=== PATIENT | female | born 1985 | race African-American/Black ===

== ENCOUNTER 2016-07-14 17:05 | Emergency (ER) | payer MEDICAID ==
[~2016-07-14] VITALS: Ht 160 cm; Wt 68.9 kg
[2016-07-14] MEDS ORDERED: NKM (17:19)
[2016-07-14] MEDS ORDERED: TESSALON PERLE100 MG ORAL (17:37)
[2016-07-14] MEDS ORDERED: IBUPROFEN600 MG ORAL (17:37)
[2016-07-14] MEDS ORDERED: AMOXICILLIN500 MG ORAL (17:37)
[2016-07-14 17:47] VITALS: BP 106/75
--- NOTE | 2016-07-16 22:08 | Emergency Room Report ---
History of Present Illness General Chief Complaint: Flu Like Symptoms Source: Patient Present Illness [facility] The patient is a 30-year-old female presenting for productive cough and sore throat which began one week prior. Pain is described as a 7/10 dull ache to the back of the throat and is worse with swallowing. Pain does not radiate. She denies any sick contacts or recent travel. She also admits to fatigue and subjective fevers. She denies any other symptoms including nausea, vomiting, shortness of breath, rash, neck pain or stiffness, abdominal pain Allergies: Coded Allergies: No Known Allergies (Unverified , 07/14/16) Patient History Past Medical History: see triage record Pertinent Family History: none Last Menstrual Period: 06/25/2016 Now: No Nursing Documentation-[facility] Past Medical History: No History, Except For Hx Hypertension: Yes Review of Systems All Other Systems: negative except mentioned in HPI Physical Exam Vital Signs Date Time Temp Pulse Resp B/P Pulse Ox O2 Delivery O2 Flow Rate FiO2 07/14/16 17:13 99.1 91 16 133/92 96 Room Air Sp02 EP Interpretation: reviewed, normal General Appearance: no apparent distress, alert, GCS 15, non-toxic Head: normocephalic, atraumatic Eyes: bilateral eye PERRL, bilateral eye normal inspection ENT: hearing grossly normal, normal voice, TMs + canals normal, uvula midline, tonsillar swelling, pharyngeal erythema Neck: full range of motion, supple/symm/no masses Respiratory: chest non-tender, lungs clear, normal breath sounds, speaking full sentences Cardiovascular #1: regular rate, rhythm, no edema Musculoskeletal: back normal, gait/station normal, normal range of motion, non- tender Neurologic: alert, oriented x3, responsive, motor strength/tone normal, sensory intact, speech normal Psychiatric: judgement/insight normal, memory normal, mood/affect normal, no suicidal/homicidal ideation Skin: normal color, no rash, warm/dry, well hydrated Lymphatic: adenopathy Medical Decision Making PA Attestation Dr. Ye is my supervising physician. Patient management was discussed with my supervising physician Diagnostic Impression: Primary Impression: Pharyngitis, acute Qualified Codes: J02.9 - Acute pharyngitis, unspecified ER Course The patient is a 30-year-old female presenting for productive cough and sore throat Differential diagnosis include but not limited to pharyngitis, sinusitis, AOM, bronchitis, PNA Physical exam: Vitals within normal limits. Afebrile. No apparent distress HEENT exam: There is bilateral tonsillar edema, erythema. Uvula midline. Moist mucous membranes. There is bilateral cervical lymphadenopathy. Lungs are clear to auscultation bilaterally Skin is warm and dry. No rash The patient will be discharged home with a prescription for amoxicillin and is given ER precautions. Patient will followup with primary care Last Vital Signs Date Time Temp Pulse Resp B/P Pulse Ox O2 Delivery O2 Flow Rate FiO2 07/14/16 17:47 70 16 106/75 100 Room Air 07/14/16 17:47 98.2 Status: improved Disposition: HOME, SELF-CARE Condition: Improved Scripts Amoxicillin* (AMOXIL*) 500 Mg Capsule 500 MG ORAL Q12HR, #20 CAP Prov: CESAR HENAO P.A. 07/14/16 Benzonatate* (TESSALON PERLE*) 100 Mg Capsule 100 MG ORAL THREE TIMES A DAY, #20 PERLE Prov: CESAR HENAO P.A. 07/14/16 Ibuprofen* (MOTRIN*) 600 Mg Tablet 600 MG ORAL Q8H Y for For Pain, #30 TAB 0 Refills Prov: CESAR HENAO P.A. 07/14/16 Patient Instructions: Sore Throat Additional Instructions: I discussed my findings with the patient. All questions and concerns have been answered. Treatment and medication compliance have been addressed. I advised the patient that they need to follow up with PMD in 3-5 days. Return to ED if pain remains or worsens, cough worsens or remains, you notice blood in your sputum, you notice wheezing, you experience a fever, or if needed for any reason. Patient verbalized understanding of discharge instructions. CESAR HENAO Jul 16, 2016 22:08
== END 2016-07-14 17:47 | disposition home or self-care (01) ==
LOC: EMR 17:25
DX: J02.9 Acute pharyngitis, unspecified (principal); I10 Essential (primary) hypertension
CPT/HCPCS: 99284

== ENCOUNTER 2016-09-24 10:31 | Emergency (ER) | payer MEDICAID ==
[~2016-09-24] VITALS: Ht 162.6 cm; Wt 68.0 kg
[~2016-09-24 10:31] MED LIST: AMOXICILLIN500 MG ORAL; IBUPROFEN600 MG ORAL; NKM; TESSALON PERLE100 MG ORAL
[2016-09-24 11:01] VITALS: BP 125/78
--- NOTE | 2016-09-24 11:11 | Emergency Room Report ---
History of Present Illness General Chief Complaint: Skin Rash/Abscess Source: Patient Present Illness HPI Patient with rash L side of chest posterior and anterior for 2 days. Severely painful. - rated 6/10. Bumpy rash began. Feverish but not documented. No numbness. No NVD, dysuria. No known exposure. Allergies: Coded Allergies: No Known Allergies (Unverified , 07/14/16) Patient History Past Medical History: see triage record Social History: Reports: smoking Social History Narrative has 2 yo at home Now: No Reviewed Nursing Documentation: PMH: Agreed, PSxH: Agreed Nursing Documentation-PMH Hx Hypertension: Yes Review of Systems Constitutional: Reports: chills, fever, malaise, no symptoms, other, see HPI, sweats, weakness All Other Systems: negative except mentioned in HPI Physical Exam Vital Signs Date Time Temp Pulse Resp B/P Pulse Ox O2 Delivery O2 Flow Rate FiO2 09/24/16 10:39 98.4 75 15 123/80 97 Room Air Sp02 EP Interpretation: reviewed, normal General Appearance: well appearing, no apparent distress Head: normocephalic, atraumatic Eyes: bilateral eye PERRL, bilateral eye normal inspection ENT: hearing grossly normal, normal voice, moist mucus membranes Neck: full range of motion, supple Respiratory: no respiratory distress, speaking full sentences Gastrointestinal: normal inspection Musculoskeletal: digits/nails normal, gait/station normal, normal range of motion Neurologic: normal inspection, alert, normal gait, grossly normal Psychiatric: mood/affect normal Skin: warm/dry, rash - vesicular T 3 L. Medical Decision Making Diagnostic Impression: Primary Impression: Shingles Qualified Codes: B02.9 - Zoster without complications ER Course Patient presents with unilateral vesicular rash. Dx = shingles. Need to see if preg. Clinical diagnosis. Needs valacylovir and focus on treatment of pain. Pt developed bronchospasm. Albuterol ordered. Cough. Improved after breathing treatment. NAD Patient improved. Patient stable for outpatient observation and treatment. Labs Test 09/24/16 13:26 Urine Color Pale yellow Urine Appearance Clear Urine pH 6 (4.5-8.0) Urine Specific [place] 1.010 (1.005-1.035) Urine Protein Negative (NEGATIVE) Urine Glucose (UA) Negative (NEGATIVE) Urine Ketones Negative (NEGATIVE) Urine Occult Blood 4+ (NEGATIVE) Urine Nitrite Negative (NEGATIVE) Urine Bilirubin Negative (NEGATIVE) Urine Urobilinogen Normal MG/DL (0.0-1.0) Urine Leukocyte Esterase 1+ (NEGATIVE) Urine RBC 2-4 /HPF (0 - 2) Urine WBC 2-4 /HPF (0 - 2) Urine Squamous Epithelial Cells Few /LPF (NONE/OCC) Urine Bacteria Few /HPF (NONE) Urine HCG, Qualitative Negative Last Vital Signs Date Time Temp Pulse Resp B/P Pulse Ox O2 Delivery O2 Flow Rate FiO2 09/24/16 14:02 98.2 75 16 123/73 99 Room Air Status: improved Disposition: HOME, SELF-CARE Condition: Improved Scripts Bacitracin (Bacitracin) 28.4 Gm Oint...g. 1 APPLIC TOPIC BID, #28.4 GM Prov: Yung Leonard M.D. 09/24/16 Ibuprofen* (MOTRIN*) 600 Mg Tablet 600 MG ORAL Q6H Y for For Pain, #20 TAB Prov: Yung Leonard M.D. 09/24/16 Tramadol Hcl* (ULTRAM*) 50 Mg Tablet 50 MG ORAL Q6H Y for For Pain, #16 TAB 0 Refills Prov: Yung Leonard M.D. 09/24/16 Capsaicin (Zostrix Hp) 56.6 Gm Cream..g. 1 APPLIC TP BID, #56.6 GM Prov: Yung Leonard M.D. 09/24/16 Valacyclovir Hcl* (VALTREX*) 500 Mg Tablet 1000 MG ORAL TID, #21 TAB Prov: Yung Leonard M.D. 09/24/16 Yung Leonard M.D. Sep 24, 2016 11:10
[2016-09-24] MEDS ORDERED: Tetanus/Diptheria/Pertussis Vaccine 0.5ml Syr IM ONE (11:15)
[2016-09-24] MEDS ORDERED: Albuterol ud Inhalation HHN ONE (12:00)
[2016-09-24] MEDS ORDERED: Bacitracin Oint UD TOPIC ONE (12:30)
[2016-09-24 13:30] VITALS: BP 123/73
[2016-09-24] MEDS ORDERED: IBUPROFEN600 MG ORAL (13:32)
[2016-09-24] MEDS ORDERED: VALACYCLOVIR500 MG ORAL (13:32)
[2016-09-24] MEDS ORDERED: TRAMADOL HCL50 MG ORAL (13:32)
[2016-09-24] MEDS ORDERED: ZOSTRIX HP56.6 G1 TP (13:32)
[2016-09-24] MEDS ORDERED: BACITRACIN15 GM TOPIC (13:32)
[2016-09-24 13:42] LABS: APPEARANCE,URINE CLEAR; KETONES,URINE NEGATIVE (NEGATIVE); LEUKOCYTE ESTERASE ,URINE 1+ (NEGATIVE); NITRITE,URINE NEGATIVE (NEGATIVE); PH,URINE 6 (4.5-8.0); PROTEIN,URINE NEGATIVE (NEGATIVE); UROBILINOGEN,URINE NORMAL MG/DL (0.0-1.0)
[2016-09-24 13:51] LABS: BACTERIA,URINE FEW /HPF; SQUAMOUS EPITHELIAL CELL,UR FEW /LPF (NONE/OCC)
[2016-09-24 14:02] VITALS: BP 123/73
== END 2016-09-24 14:08 | disposition home or self-care (01) ==
LOC: EMR 11:00
DX: B02.9 Zoster without complications (principal); I10 Essential (primary) hypertension; F17.200 Nicotine dependence, unspecified, uncomplicated; Z23 Encounter for immunization
CPT/HCPCS: 81003; 81025; 82962; 90471; 90715; 94640; 94664; 96372; 99284